=== PATIENT | male | born 1940 | race Caucasian/White ===

== ENCOUNTER 2021-09-12 04:38 | Inpatient (IN) | payer MEDICARE ==
[~2021-09-12] VITALS: Ht 180.3 cm; Wt 68.0 kg
[2021-09-12] MEDS ORDERED: ALBUTEROL SULF 0.083% NEB SOLN 3 ML NEB NEB STA (04:43)
[2021-09-12] MEDS ORDERED: IPRATROPIUM BROMIDE 0.02% 2.5 ML NEB NEB ONE (04:45)
[2021-09-12] MEDS ORDERED: METHYLPREDNISOLONE SOD SUCC 125 MG/2ML VIAL IV ONE (04:45)
[2021-09-12] MEDS ORDERED: CEFTRIAXONE 1 GM in SODIUM CHLORIDE 0.9% 50ML 50 ML IV ONE (05:00)
[2021-09-12] MEDS ORDERED: ACETAMINOPHEN 325 MG TAB PO ONE (05:00)
[2021-09-12] MEDS ORDERED: ACETAMINOPHEN 325 MG TAB ONE (05:10)
[2021-09-12] MEDS ORDERED: SODIUM CHLORIDE 0.9% 50ML 50 ML ONE ×2 (05:10→07:03)
[2021-09-12] MEDS ORDERED: CEFTRIAXONE 1 GM VIAL ONE (05:10)
[2021-09-12 05:39] LABS: BASOPHILS # (AUTO) 0.1 (0.0-0.1); BASOPHILS % 0.8 % (0.0-1.0); EOSINOPHILS # (AUTO) 0.1 (0.0-0.4); EOSINOPHILS % 0.7 % (0.0-6.0); HEMATOCRIT 43.5 % (38.2-49.6); HEMOGLOBIN 14.3 g/dL (14.0-18.0); LYMPHOCYTES # (AUTO) 1.9 (1.0-3.2); LYMPHOCYTES % 12.3 % (18.0-39.1); MEAN CORPUSCULAR HEMOGLOBIN 28.7 pg (28-32); MEAN CORPUSCULAR HGB CONC 32.9 g/dL (31-35); MEAN CORPUSCULAR VOLUME 87.2 fL (81-99); MONOCYTES # (AUTO) 1.2 (0.2-0.8); MONOCYTES % 7.5 % (4.4-11.3); NEUTROPHILS # (AUTO) 12.1 (2.1-6.9); NEUTROPHILS % 77.7 % (38.7-80.0); PLATELET COUNT 240 x10e3/uL (140-360); RED BLOOD COUNT 4.99 x10e6/uL (4.3-5.7); RED CELL DISTRIBUTION WIDTH 14.1 % (11.7-14.4)
[2021-09-12] MEDS ORDERED: Vancomycin IV 1 GM in SODIUM CHLORIDE 0.9% 250ML 250 ML IV STA (06:00)
[2021-09-12 06:04] LABS: ALBUMIN/GLOBULIN RATIO 0.8 (0.8-2.0); ANION GAP 15.9 mmol/L (8-16); CALCIUM 8.8 mg/dL (8.4-10.2); CREATININE, SERUM 0.74 mg/dL (0.72-1.25); POTASSIUM 4.9 mmol/L (3.5-5.1)
[2021-09-12 06:12] LABS: CREATINE KINASE MB 5.9 ng/mL (0-5.0)
[2021-09-12] MEDS ORDERED: SODIUM CHLORIDE 0.9% 250ML 250 ML ONE ×2 (06:15→11:26)
[2021-09-12] MEDS ORDERED: SODIUM CHLORIDE 0.9% 1000ML 1,000 ML IV SCH (06:15)
[2021-09-12] MEDS ORDERED: Vancomycin IV 1 GM VIAL ONE (06:16)
[2021-09-12] MEDS ORDERED: IOPAMIDOL 370 MG/ML 200 ML INFUS..BTL INJ ONE (07:03)
[2021-09-12 07:04] LABS: B-TYPE NATRIURETIC PEPTIDE2 33.2 pg/mL (0-100)
[2021-09-12 09:28] VITALS: BP 112/67
[2021-09-12 09:47] VITALS: BP 112/67
[2021-09-12] MEDS ORDERED: ONDANSETRON HCL INJ 2MG/ML 2ML 2 MG/ML VIAL IV PRN (11:00)
[2021-09-12 11:31] VITALS: BP 109/76
[2021-09-12] MEDS: PIPERACILLIN/TAZOBACTAM 3.375 GM in SODIUM CHLORIDE 0.9% 50ML 50 ML IV SCH ×2 (12:37→18:29)
[2021-09-12] MEDS ORDERED: GUAIFENESIN/DEXTROMETHORPHAN LIQD 5 ML UDC NG PRN (14:00)
[2021-09-12] MEDS ORDERED: BENZONATATE 100 MG CAP PO PRN (14:00)
[2021-09-12] MEDS ORDERED: DOCUSATE SODIUM 100 MG CAP PO PRN (14:00)
[2021-09-12 15:40] VITALS: BP 94/70
[2021-09-12 19:20] VITALS: BP 116/83
[2021-09-12] MEDS ORDERED: FUROSEMIDE INJ 10 MG/ML 2 ML VIAL IV ONE (19:30)
[2021-09-12] MEDS: FUROSEMIDE INJ 10 MG/ML 2 ML VIAL IV SCH (21:00)
[2021-09-12] MEDS: ALBUTEROL/IPRATROPIUM 3 ML NEB NEB PRN (23:22)
[2021-09-13] VITALS (8 sets, daily range): BP systolic 90–107; BP diastolic 57–73
[2021-09-13] MEDS: ALBUTEROL/IPRATROPIUM 3 ML NEB NEB PRN ×4 (03:11→19:15)
[2021-09-13 05:10] LABS: BASOPHILS % 0.2 % (0.0-1.0); HEMATOCRIT 42.2 % (38.2-49.6); HEMOGLOBIN 13.5 g/dL (14.0-18.0); LYMPHOCYTES # (AUTO) 0.7 (1.0-3.2); LYMPHOCYTES % 3.6 % (18.0-39.1); MEAN CORPUSCULAR HEMOGLOBIN 28.1 pg (28-32); MEAN CORPUSCULAR VOLUME 87.9 fL (81-99); MONOCYTES % 5.2 % (4.4-11.3); NEUTROPHILS # (AUTO) 17.8 (2.1-6.9); NEUTROPHILS % 90.5 % (38.7-80.0); PLATELET COUNT 218 x10e3/uL (140-360); RED CELL DISTRIBUTION WIDTH 14.1 % (11.7-14.4)
[2021-09-13 05:38] LABS: ALBUMIN 2.6 g/dL (3.5-5.0); ALBUMIN/GLOBULIN RATIO 0.7 (0.8-2.0); ANION GAP 16.9 mmol/L (8-16); CREATININE, SERUM 0.98 mg/dL (0.72-1.25); POTASSIUM 4.9 mmol/L (3.5-5.1)
[2021-09-13] MEDS: PIPERACILLIN/TAZOBACTAM 3.375 GM in SODIUM CHLORIDE 0.9% 50ML 50 ML IV SCH ×7 (06:00→23:33)
[2021-09-13] MEDS: FUROSEMIDE INJ 10 MG/ML 2 ML VIAL IV SCH ×2 (08:27→20:33)
[2021-09-13] MEDS ORDERED: SYNTHROID125 MCG PO (15:34)
[2021-09-13] MEDS ORDERED: IPRATROPIU0.2 MG/1 M INH (15:34)
[2021-09-13] MEDS ORDERED: GALZIN50 MG PO (15:34)
[2021-09-13] MEDS ORDERED: ACETAMINOPHEN325 M1 PO (15:34)
[2021-09-13] MEDS ORDERED: LOVAZA1 GM PO (15:34)
[2021-09-13] MEDS ORDERED: PANTOPRAZOLE SO20 MG (15:34)
[2021-09-13] MEDS ORDERED: FLOMAX0.4 MG PO (15:34)
[2021-09-13] MEDS ORDERED: ALBUT INH (15:34)
[2021-09-13] MEDS ORDERED: CHOLECALCIF PO (15:34)
[2021-09-13] MEDS ORDERED: GUAIFENESIN-DM 15 ML PO (15:34)
[2021-09-13] MEDS ORDERED: IPRAT INH (15:34)
[2021-09-13] MEDS ORDERED: FINASTERIDE5 MG PO (15:34)
[2021-09-13] MEDS ORDERED: NUTRITIONAL SH PO (15:34)
[2021-09-13] MEDS ORDERED: VITAMIN B-121000 MCG PO (15:34)
[2021-09-13] MEDS ORDERED: PROTONIX40 MG PO (15:34)
[2021-09-13] MEDS ORDERED: FLUTICASONE-SA1 EAC1 INH (15:34)
[2021-09-13] MEDS ORDERED: ASCORBIC ACID500 M2 PO (15:34)
[2021-09-14] MEDS: ACETAMINOPHEN 325 MG TAB PO PRN ×2 (01:00→17:23)
[2021-09-14 01:14] VITALS: BP 106/76
[2021-09-14 05:08] VITALS: BP 110/81
[2021-09-14] MEDS: PIPERACILLIN/TAZOBACTAM 3.375 GM in SODIUM CHLORIDE 0.9% 50ML 50 ML IV SCH ×4 (05:15→23:17)
[2021-09-14 07:11] LABS: BASOPHILS % 0.2 % (0.0-1.0); EOSINOPHILS % 0.1 % (0.0-6.0); HEMATOCRIT 43.1 % (38.2-49.6); HEMOGLOBIN 13.8 g/dL (14.0-18.0); LYMPHOCYTES # (AUTO) 1.3 (1.0-3.2); LYMPHOCYTES % 7.1 % (18.0-39.1); MEAN CORPUSCULAR VOLUME 87.6 fL (81-99); MONOCYTES # (AUTO) 1.3 (0.2-0.8); NEUTROPHILS # (AUTO) 15.7 (2.1-6.9); NEUTROPHILS % 85.1 % (38.7-80.0); PLATELET COUNT 249 x10e3/uL (140-360); RED BLOOD COUNT 4.92 x10e6/uL (4.3-5.7); RED CELL DISTRIBUTION WIDTH 14.4 % (11.7-14.4)
[2021-09-14 07:39] LABS: ANION GAP 15.9 mmol/L (8-16); CALCIUM 9.4 mg/dL (8.4-10.2); CREATININE, SERUM 0.84 mg/dL (0.72-1.25); POTASSIUM 3.9 mmol/L (3.5-5.1)
[2021-09-14 08:19] VITALS: BP 110/62
[2021-09-14] MEDS: TRAMADOL HCL 50 MG TAB PO PRN (09:39)
[2021-09-14] MEDS: FUROSEMIDE INJ 10 MG/ML 2 ML VIAL IV SCH ×2 (09:42→20:52)
[2021-09-14] MEDS: ALBUTEROL/IPRATROPIUM 3 ML NEB NEB PRN ×4 (11:43→23:10)
[2021-09-14 11:53] VITALS: BP 90/76
[2021-09-14 20:00] VITALS: BP 101/84
[2021-09-14 21:02] VITALS: BP 101/84
[2021-09-15] VITALS (7 sets, daily range): BP systolic 102–122; BP diastolic 76–89
[2021-09-15] MEDS: TRAMADOL HCL 50 MG TAB PO PRN ×2 (00:47→17:38)
[2021-09-15] MEDS: DEXTROSE 5% 1,000 ML IV SCH (03:36)
[2021-09-15] MEDS: ALBUTEROL/IPRATROPIUM 3 ML NEB NEB PRN (03:39)
[2021-09-15] MEDS: PIPERACILLIN/TAZOBACTAM 3.375 GM in SODIUM CHLORIDE 0.9% 50ML 50 ML IV SCH ×2 (05:16→18:00)
[2021-09-15 05:53] LABS: BASOPHILS # (AUTO) 0.1 (0.0-0.1); BASOPHILS % 0.4 % (0.0-1.0); EOSINOPHILS # (AUTO) 0.1 (0.0-0.4); EOSINOPHILS % 0.3 % (0.0-6.0); HEMATOCRIT 46.2 % (38.2-49.6); HEMOGLOBIN 14.6 g/dL (14.0-18.0); LYMPHOCYTES # (AUTO) 1.6 (1.0-3.2); MEAN CORPUSCULAR HEMOGLOBIN 28.1 pg (28-32); MEAN CORPUSCULAR HGB CONC 31.6 g/dL (31-35); MONOCYTES # (AUTO) 1.7 (0.2-0.8); MONOCYTES % 8.2 % (4.4-11.3); NEUTROPHILS # (AUTO) 16.7 (2.1-6.9); NEUTROPHILS % 82.2 % (38.7-80.0); PLATELET COUNT 290 x10e3/uL (140-360); RED BLOOD COUNT 5.19 x10e6/uL (4.3-5.7); RED CELL DISTRIBUTION WIDTH 14.7 % (11.7-14.4)
[2021-09-15 06:19] LABS: ANION GAP 19.8 mmol/L (8-16); CALCIUM 9.8 mg/dL (8.4-10.2); POTASSIUM 3.8 mmol/L (3.5-5.1)
[2021-09-15] MEDS: FUROSEMIDE INJ 10 MG/ML 2 ML VIAL IV SCH ×2 (11:07→21:16)
[2021-09-16] VITALS (9 sets, daily range): BP systolic 91–116; BP diastolic 73–96
[2021-09-16] MEDS: PIPERACILLIN/TAZOBACTAM 3.375 GM in SODIUM CHLORIDE 0.9% 50ML 50 ML IV SCH ×4 (00:30→16:55)
[2021-09-16] MEDS: DEXTROSE 5% 1,000 ML IV SCH (03:30)
[2021-09-16] MEDS: ACETAMINOPHEN 325 MG TAB PO PRN (04:32)
[2021-09-16] MEDS: TRAMADOL HCL 50 MG TAB PO PRN ×2 (06:25→17:45)
[2021-09-16] MEDS: FUROSEMIDE INJ 10 MG/ML 2 ML VIAL IV SCH ×2 (08:16→21:00)
[2021-09-16] MEDS ORDERED: METOPROLOL TARTRATE INJ 1 MG/ML VIAL IV ONE (09:45)
[2021-09-17] VITALS (7 sets, daily range): BP systolic 112–152; BP diastolic 69–103
[2021-09-17] MEDS: PIPERACILLIN/TAZOBACTAM 3.375 GM in SODIUM CHLORIDE 0.9% 50ML 50 ML IV SCH ×2 (00:23→05:48)
[2021-09-17] MEDS: DEXTROSE 5% 1,000 ML IV SCH (05:41)
[2021-09-17] MEDS: ALBUTEROL/IPRATROPIUM 3 ML NEB NEB PRN ×2 (08:03→17:35)
[2021-09-17] MEDS: FUROSEMIDE INJ 10 MG/ML 2 ML VIAL IV SCH (08:53)
[2021-09-17] MEDS ORDERED: CEFEPIME 1 GM in SODIUM CHLORIDE 0.9% 50ML 50 ML IV SCH (09:00)
[2021-09-17] MEDS: TRAMADOL HCL 50 MG TAB PO PRN (14:43)
== END 2021-09-17 23:10 | disposition expired | DRG 180 ==
LOC: ER 04:44 → ERHOLD 07:31 → MED/SURG3 09:07
PROVIDERS: ADMIT Internal Medicine; ATTEND Internal Medicine
DX: C34.90 Malignant neoplasm of unspecified part of unspecified bronchus or lung (principal); J96.21 Acute and chronic respiratory failure with hypoxia; J18.9 Pneumonia, unspecified organism; G93.41 Metabolic encephalopathy; C77.1 Secondary and unspecified malignant neoplasm of intrathoracic lymph nodes; C78.1 Secondary malignant neoplasm of mediastinum; C79.31 Secondary malignant neoplasm of brain; E87.1 Hypo-osmolality and hyponatremia; J44.0 Chronic obstructive pulmonary disease with (acute) lower respiratory infection; C78.7 Secondary malignant neoplasm of liver and intrahepatic bile duct; J91.0 Malignant pleural effusion; I25.10 Atherosclerotic heart disease of native coronary artery without angina pectoris; Z95.5 Presence of coronary angioplasty implant and graft; Z99.81 Dependence on supplemental oxygen; Z20.822 Contact with and (suspected) exposure to COVID-19; Z51.5 Encounter for palliative care; Z96.642 Presence of left artificial hip joint
CPT/HCPCS: 36415; 70450; 71045; 71260; 80048; 80053; 82550; 82553; 82948; 83605; 83880; 84484; 85025; 87040; 93005; 94640; 94799; 96360; 97139; 99284; J0456; J0692; J0696; J1940; J2543; J2930; J3370; J7030; J7050; J7070; Q9967; U0002